=== PATIENT | male | born 1990 | race Two or more races ===

== ENCOUNTER 2016-11-03 01:46 | Emergency (ER) | payer SELFPAY ==
[~2016-11-03] VITALS: Ht 172.7 cm; Wt 79.4 kg
[2016-11-03] MEDS ORDERED: IV NORMAL SALINE 1000ML BAG 1,000 ML IV ONE (02:15)
[2016-11-03 02:22] LABS: BASO # 0.2 x10^3/uL (0.0-0.2); BASO % 1 % (0-3); EOS % 1 % (0-3); HEMATOCRIT 46.3 % (39.0-53.0); HEMOGLOBIN 15.4 g/dL (13.0-17.5); LYMPH # 1.7 x10^3/uL (1.0-4.8); LYMPH % 12 % (24-48); MEAN CORPUSCULAR HEMOGLOBIN 30 pg (25-35); MEAN CORPUSCULAR HGB CONC 33 g/dL (31-37); MEAN CORPUSCULAR VOLUME 89 fL (79-100); MONO % 5 % (0-9); NEUT % 82 % (31-73); PLATELET COUNT 297 x10^3/uL (140-400); RED BLOOD COUNT 5.22 x10^6/uL (4.30-5.70); RED CELL DISTRIBUTION WIDTH 12.7 % (11.5-14.5); WHITE BLOOD COUNT 14.5 x10^3/uL (4.0-11.0)
[2016-11-03] MEDS ORDERED: DIPHTH,PERTUSS(ACELL),TET TOX 0.5 ML DISP.SYRIN. VAX IM ONE (02:30)
[2016-11-03 02:35] LABS: CREATININE 1.6 mg/dL (0.7-1.3); GFR 53.4
[2016-11-03 02:42] LABS: ALBUMIN 3.7 g/dL (3.4-5.0); TOTAL BILIRUBIN 0.2 mg/dL (0.2-1.0); TOTAL PROTEIN 7.4 g/dL (6.4-8.2)
--- NOTE | 2016-11-03 03:55 | RAD ---
INDICATION: trauma, pain post fall COMPARISON: None. TECHNIQUE: Axial CT images obtained through the head without intravenous contrast. One or more of the following individualized dose reduction techniques were utilized for this examination: 1. Automated exposure control; 2. Adjustment of the mA and/or kV according to patient size; 3. Use of iterative reconstruction technique. FINDINGS: No intracranial hemorrhage. No midline shift. Basal cisterns patent. Ventricles and sulci are unremarkable. No acute osseous abnormality. Orbits and paranasal sinuses unremarkable. IMPRESSION: 1. No acute intracranial hemorrhage. 2. There is some mild suspected scattered foci of low attenuation within the white matter. This is a nonspecific appearance but can be seen with the sequela of migraine, demyelination or chronic small vessel ischemic disease. 3. Tiny high density structure is seen within soft tissues left supraorbital region. Could be calcification in soft tissues but would correlate with laceration within the region to ensure there is not an alternative cause such as tiny foreign body. Electronically signed by: Santos Mera MD (11/03/2016 3:51 AM)
[2016-11-03 04:18] VITALS: BP 114/67
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
== END 2016-11-03 04:30 | disposition home or self-care (01) ==
LOC: ER 01:46
DX: S51.812A Laceration without foreign body of left forearm, initial encounter (principal); S40.212A Abrasion of left shoulder, initial encounter; S50.312A Abrasion of left elbow, initial encounter; S80.212A Abrasion, left knee, initial encounter; N17.9 Acute kidney failure, unspecified; R74.8 Abnormal levels of other serum enzymes; F12.10 Cannabis abuse, uncomplicated; R00.0 Tachycardia, unspecified; M79.1 Myalgia; W26.0XXA Contact with knife, initial encounter; Y93.89 Activity, other specified; Y92.89 Other specified places as the place of occurrence of the external cause; Y99.8 Other external cause status
CPT/HCPCS: 36415; 70450; 80053; 80320; 82550; 85027; 90471; 90715; 96360; 96361; 99285; J7030; G0480